=== PATIENT | female | born 1970 | race Caucasian/White ===

== ENCOUNTER 2023-07-21 15:22 | Outpatient (CLI) | payer MEDICAID, SELFPAY ==
--- NOTE | 2023-07-21 15:40 | XRR_ITS ---
PROCEDURE INFORMATION: Exam: XR Lumbosacral Spine Exam date and time: 07/21/2023 3:42 PM Age: 52 years old Clinical indication: Low back pain; Additional info: M54.42 TECHNIQUE: Imaging protocol: Radiologic exam of the lumbosacral spine. Views: 2 or 3 views. COMPARISON: No relevant prior studies available. FINDINGS: Bones/joints: Vertebral body spurring can be seen at multiple levels. No fracture or subluxation noted.With flexion and extension there is no evidence of instability. Soft tissues: Unremarkable. XR/XR lumbar spine f/e only [id number] IMPRESSION: No acute findings.
== END 2023-07-21 15:23 | disposition home or self-care (01) ==
PROVIDERS: PCP Nurse Practitioner; Visit Provider Nurse Practitioner
DX: M54.50 Low back pain, unspecified (principal)
CPT/HCPCS: 72120

== ENCOUNTER 2023-11-22 11:44 | Outpatient (CLI) | payer MEDICAID, SELFPAY ==
--- NOTE | 2023-11-22 11:55 | MR_ITS ---
WS: [id number] MRI LUMBAR SPINE NONCONTRAST HISTORY: LEG PARESTHESIA, LUMBAGO WITH sciatica, LEFT SIDE COMPARISON: None available. TECHNIQUE: Sagittal and axial multisequence imaging is submitted. Localizer demonstrates straightening and posterior reversal of the normal cervical lordosis centered at C4-5. Central shallow disc protrusion at T9-10. Normal alignment. Small amount of reactive marrow edema in the adjacent endplates of L4-5 on the LEFT . Mild facet joint synovitis on the RIGHT at L4-5. Disc spaces and vertebral body heights are well-preserved. Conus terminates normally at L1-2 disc level. L1-L2: Normal. L2-L3: Mild disc bulging. Shallow RIGHT paracentral disc protrusion very slightly encroaching upon th e RIGHT traversing L3 nerve root. Mild RIGHT subarticular recess and foraminal narrowing. L3-L4: Moderate annular disc bulging causing effacement and flattening of the ventral thecal sac and narrowing of the subarticular recesses. Mild facet disease. Very mild foraminal narrowing. L4-L5: Mild annular disc bulging with a central shallow disc protrusion. There is mild disc encroachm ent upon the subarticular recesses and the traversing L5 nerve roots, RIGHT greater than LEFT. Small amount of fluid in the RIGHT facet joint. Mild ligamentum flavum and facet disease. Additional RIGHT foraminal shallow disc protrusion. Mild central, bilateral subarticular recess and foraminal stenosis , RIGHT greater than LEFT. There is slightly greater disc contact on the RIGHT L4 and L5 nerve roots. L5-S1: Mild annular disc bulging with disc contacting the S1 nerve roots, RIGHT greater than LEFT. Mi ld osteophytic ridging. Mild bilateral subarticular recess and mild to moderate bilateral foraminal s tenosis. Slightly greater disc extension into the LEFT foramen. There is a LEFT foraminal disc protru paul effacing fat and contacting the nerve roots. There is contact on the LEFT exiting L5 nerve root. Moderate LEFT foraminal stenosis with mild to moderate RIGHT foraminal stenosis. Cystic masses in the liver are identified on the axial T2 sequence. The largest measure up to 12 mm. MR/MR lumbar spine wo con* [id number] IMPRESSION: 1. No high-grade central stenosis. 2. L5-S1: Moderate LEFT with mild to moderate RIGHT foraminal stenosis due to disc and osteophyte disease. LEFT foraminal disc protrusion effacing fat and co ntacting the LEFT exiting L5 nerve root. 3. L4-5: Disc encroachment upon the traversing L5 nerve roots, RIGHT greater t kohler LEFT. Mild central, bilateral subarticular recess and foraminal stenosis. 4. L2-3: Shallow RIGHT paracentral disc protrusion slightly contacting the RIG HT traversing L3 nerve root. Mild RIGHT subarticular recess and foraminal steno sis. 5. L3-4: Mild foraminal narrowing. 6. T2 hyperintense masses in the liver. These may be cysts. Recommend follow-u p RIGHT upper quadrant ultrasound.
== END 2023-11-22 11:45 | disposition home or self-care (01) ==
LOC: RAD 11:45
PROVIDERS: PCP Nurse Practitioner; Visit Provider Nurse Practitioner
DX: M54.42 Lumbago with sciatica, left side (principal); M99.63 Osseous and subluxation stenosis of intervertebral foramina of lumbar region; M99.64 Osseous and subluxation stenosis of intervertebral foramina of sacral region; M25.78 Osteophyte, vertebrae; M51.24 Other intervertebral disc displacement, thoracic region; R20.2 Paresthesia of skin
CPT/HCPCS: 72148

== ENCOUNTER 2024-09-10 05:00 | Outpatient (RCR) | payer MEDICAID, SELFPAY | END 2024-10-09 23:59 | disposition home or self-care (01) | LOC: GPT 05:00 | PROVIDERS: PCP Nurse Practitioner; Visit Provider Nurse Practitioner Family | DX: M47.896 Other spondylosis, lumbar region (principal) | CPT/HCPCS: 97161 ==

== ENCOUNTER 2024-09-12 12:40 | Outpatient (CLI) | payer MEDICAID, SELFPAY ==
--- NOTE | 2024-09-12 12:48 | XR_ITS ---
WS: [id number] XR lumbar spine 2-3V* [id number] REASON FOR EXAM: ARTHODESIS FINDINGS: Posterior decompression with pedicle screws, interconnecting rods, and interbody fusion devices L4-S1. Surgical appliances are intact and in proper position and alignment. The remainder of the lumbar spine is unchanged compared to 07/21/2023. XR/XR lumbar spine 2-3V* [id number] IMPRESSION: Posterior lumbar fusion without abnormality.
== END 2024-09-12 12:41 | disposition home or self-care (01) ==
LOC: RAD 12:43
PROVIDERS: PCP Nurse Practitioner; Visit Provider Nurse Practitioner Family
DX: Z98.1 Arthrodesis status (principal)
CPT/HCPCS: 72100

== ENCOUNTER 2024-10-25 13:16 | Outpatient (CLI) | payer MEDICAID, SELFPAY ==
--- NOTE | 2024-10-25 13:23 | MM_ITS ---
WS: [id number] BILATERAL 3D TOMOSYNTHESIS DIGITAL SCREENING MAMMOGRAM WITH CAD CLINICAL INFORMATION: SCREENING HISTORY: Screening mammogram. No current complaints. COMPARISON: Baseline TECHNIQUE: Bilateral CC and MLO. FINDINGS: The breast are composed of extremely dense tissue, which can limit the detection of small underlying mass lesions. No suspicious focal mass, asymmetry, calcifications, or architectural distortion. No evidence of malignancy. Incidental punctate and lucent centered calcifications. MM/MM [facility] tomosynthesis [id number] IMPRESSION: DENSITY: The breasts are extremely dense, which lowers the sensitivity of mammo graphy. BI-RADS: 2 - Benign FOLLOW UP: 1 Year Follow-up Recommend return to annual screening mammography.
== END 2024-10-25 13:17 | disposition home or self-care (01) ==
LOC: RAD 13:16
PROVIDERS: PCP Nurse Practitioner; Visit Provider Nurse Practitioner
DX: Z12.31 Encounter for screening mammogram for malignant neoplasm of breast (principal); R92.343 Mammographic extreme density, bilateral breasts; R92.1 Mammographic calcification found on diagnostic imaging of breast
CPT/HCPCS: 77063; 77067

== ENCOUNTER 2024-11-06 09:27 | Outpatient (RCR) | payer MEDICAID, SELFPAY | END 2024-11-09 23:59 | disposition home or self-care (01) | LOC: SPT 09:27 | PROVIDERS: PCP Nurse Practitioner; Visit Provider Nurse Practitioner Family | DX: M54.50 Low back pain, unspecified (principal); G89.29 Other chronic pain | CPT/HCPCS: 97161; 97530 ==

== ENCOUNTER 2024-11-10 05:00 | Outpatient (RCR) | payer MEDICAID, SELFPAY | END 2024-12-10 23:59 | disposition home or self-care (01) | LOC: SPT 05:00 | PROVIDERS: PCP Nurse Practitioner; Visit Provider Nurse Practitioner Family | DX: M54.16 Radiculopathy, lumbar region (principal); G89.29 Other chronic pain | CPT/HCPCS: 97110 ==

== ENCOUNTER 2024-12-11 05:00 | Outpatient (RCR) | payer MEDICAID, SELFPAY | END 2025-01-09 23:59 | disposition home or self-care (01) | LOC: SPT 05:00 | PROVIDERS: PCP Nurse Practitioner; Visit Provider Nurse Practitioner Family | DX: M54.16 Radiculopathy, lumbar region (principal); M54.50 Low back pain, unspecified; G89.29 Other chronic pain | CPT/HCPCS: 97110 ==

== ENCOUNTER → 2025-01-23 14:39 | Outpatient (BNVA) | payer MEDICAID, SELFPAY | PROVIDERS: PCP Nurse Practitioner; Visit Provider Orthopaedic Surgery | DX: M54.50 Low back pain, unspecified (principal); M43.26 Fusion of spine, lumbar region | CPT/HCPCS: 72100 ==

== ENCOUNTER 2025-01-31 08:29 | Outpatient (CLI) | payer MEDICAID, SELFPAY ==
--- NOTE | 2025-01-31 08:30 | CTR_ITS ---
PROCEDURE INFORMATION: Exam: CT Lumbar Spine Without Contrast Exam date and time: 01/31/2025 8:39 AM Age: 54 years old Clinical indication: Low back pain; Prior surgery; Surgery date: 6+ months; Surgery type: Back, appy, tubal; Had surgery in July, continued right hip and down right leg nerve pain since; Additional info: Low back pain, pa approved - approval #[id number] [employer] contact TECHNIQUE: Imaging protocol: Computed tomography of the lumbar spine without contrast. Radiation optimization: All CT scans at this facility use at least one of these dose optimization techniques: automated exposure control; mA and/or kV adjustment per patient size (includes targeted exams where dose is matched to clinical indication); or iterative reconstruction. COMPARISON: MR lumbar spine wo con* [id number] 11/22/2023 12:32 PM RADIATION DOSE METRICS: Total DLP (mGy-cm): 318 FINDINGS: Bones/joints: The vertebral body heights are well-maintained. Bilateral transpedicular screws are present at L3, L4, and L5. There are interbody spacers at L4-L5 and L5-S1. The dorsal margin of the interbody spacers extend beyond the anatomic level of the dorsal cortex of the L4 and L5 vertebral body by at least 4 mm. There are bilateral decompressive laminectomies present at these levels. The sacrum is intact. The hardware is intact. The paraspinal soft tissue is unremarkable. Spinal epidural space: There is a mild concentric disc bulge at L3-L4 with flattening of the ventral aspect of the thecal sac. There is no definitive canal stenosis. Liver: There is a small cyst is present within the right hepatic lobe of the liver. Soft tissues: Unremarkable. CT/CT lumbar spine wo con* [id number] IMPRESSION: 1. No acute process 2. Posterior and interbody surgical fusion with posterior decompression at L4-L5 and L5-S1. Again there are no CT evidence of complicating feature.
== END 2025-01-31 08:30 | disposition home or self-care (01) ==
LOC: RAD 08:30
PROVIDERS: PCP Nurse Practitioner; Visit Provider Orthopaedic Surgery
DX: M54.50 Low back pain, unspecified (principal); M43.26 Fusion of spine, lumbar region
CPT/HCPCS: 72131